=== PATIENT | female | born 1990 | race Caucasian/White ===

== ENCOUNTER → 2017-04-22 | Outpatient (CLI) | payer OTHER ==
[~2017-04-22] MED LIST: FURO-85 PO; PEDICHW50 PO; PHEN10CA3 PO
--- NOTE | 2017-04-22 09:59 | DIAGNOSTIC IMAGING REPORT ---
SKULL MIN 4 VIEWS CLINICAL HISTORY: TRAUMA TO HEAD trauma COMPARISON STUDY: None FINDINGS: Normal skull. All major sinuses are clear. Cortical margins are intact IMPRESSION: Negative study The above report was generated using voice recognition software. It may contain grammatical, syntax or spelling errors. Electronically signed by: Taco Norman M.D. 04/22/2017 9:58 AM Dictated Date/Time: 04/22/2017 9:57 AM
== END | disposition home or self-care (01) ==
LOC: C.RAD1850 09:42
PROVIDERS: ATTEND Nurse Practitioner Family
DX: S09.90XA Unspecified injury of head, initial encounter (principal); X58.XXXA Exposure to other specified factors, initial encounter

== ENCOUNTER → 2017-05-24 | Day surgery (SDC) | payer OTHER ==
[2017-05-23 08:00] VITALS: Ht 158.8 cm; Wt 61.8 kg
[~2017-05-24] VITALS: Ht 158.8 cm; Wt 61.8 kg
[~2017-05-24] MED LIST changes: +LIDOCAINE HCL 2% 2 ML VIAL (20MG/ML) ONE; -PEDICHW50 PO; +PROPOFOL IV EMULSION 10 MG/ML 20 ML VIAL IV ONE; +SODIUM CHLORIDE 0.9% 500ML 500 ML IV ONE
--- NOTE | 2017-05-24 09:16 | Endo History and Physical ---
History & Physical Date of Service: May 24, 2017. Chief Complaint: Screening, Family hx colon CA Referring Physician: Rodger Brown History of Present Illness 26 yo CF who presents for colonoscopy secondary to family history of colon cancer. Past Surgical History Hx Cardiac Surgery: No Hx Internal Defibrillator: No Hx Pacemaker: No Hx Abdominal Surgery: No Hx of Implantable Prosthesis: No Hx Post-Op Nausea and Vomiting: No Hx Cancer Surgery: No Hx Thoracic Surgery: No Hx Orthopedic: No Hx Urinary Tract Surgery: No Family History Polyp Social History Smoking Status: Current Every Day Smoker Hx Substance Use: No Hx Alcohol Use: No Allergies Coded Allergies: Azithromycin (Verified Allergy, Intermediate, Hives, 05/23/17) Penicillins (Verified Allergy, Intermediate, ITCHING, 05/23/17) Sulfamethoxazole w/Trimethoprim (Verified Allergy, Intermediate, ITCHING, 05/23/17) Nickel (Verified Allergy, Unknown, SKIN IRRITATION WITH EARRINGS, 05/23/17) Tetracycline (Verified Allergy, Unknown, ITCHING, 05/23/17) Current Medications Reported Home Medications Medications Dose Route/Sig Max Daily Dose Days Date Category Adipex P (Phentermine Hcl) 37.5 Mg Cap 37.5 Mg PO QAM 05/23/17 Reported Lasix (Furosemide) 20 Mg Tab 20 Mg PO QAM 05/23/17 Reported Vital Signs Weight (Kilograms): 61.82 Height (Feet): 5 Height (Inches): 2.5 Date Time Temp Pulse Resp B/P (MAP) Pulse Ox O2 Delivery O2 Flow Rate FiO2 05/24/17 08:54 36.6 72 16 113/66 (82) 100 Room Air Physical Exam General Appearance: WD/WN, no apparent distress Respiratory/Chest: Auscultation: breath sounds normal Cardiovascular: Heart Auscultation: RRR Abdomen: Bowel Sounds: normal Inspection & Palpation: soft, non-distended, no tenderness, guarding & rebound Assessment and Plan Assessment: 26 yo CF who presents for colonoscopy secondary to family history of colon cancer. Plan: Proceed with colonoscopy.
--- NOTE | 2017-05-24 10:14 | Anesthesiology Progress Note ---
Anesthesia Post Op Note Date & Time May 24, 2017 at 10:14 Vital Signs Pain Intensity: 0 Vital Signs Past 12 Hours Date Time Temp Pulse Resp B/P (MAP) Pulse Ox O2 Delivery O2 Flow Rate FiO2 05/24/17 09:56 63 18 116/73 (87) 99 Room Air 05/24/17 09:50 109/68 (82) 05/24/17 09:45 62 16 86/42 (57) 99 Room Air 05/24/17 08:54 36.6 72 16 113/66 (82) 100 Room Air Notes Mental Status: alert / awake / arousable, participated in evaluation Pt Amnestic to Procedure: Yes Nausea / Vomiting: adequately controlled Pain: adequately controlled Airway Patency, RR, SpO2: stable & adequate BP & HR: stable & adequate Hydration State: stable & adequate Anesthetic Complications: no major complications apparent
[2017-05-24 10:15] VITALS: BP 115/73; PULSE 65; O2SAT 99
--- NOTE | 2017-05-24 10:21 | Discharge Instructions ---
Endoscopy Patient Instructions Date / Procedure(s) Performed May 24, 2017. Colonoscopy Allergy Information Coded Allergies: Azithromycin (Verified Allergy, Intermediate, Hives, 05/23/17) Penicillins (Verified Allergy, Intermediate, ITCHING, 05/23/17) Sulfamethoxazole w/Trimethoprim (Verified Allergy, Intermediate, ITCHING, 05/23/17) Nickel (Verified Allergy, Unknown, SKIN IRRITATION WITH EARRINGS, 05/23/17) Tetracycline (Verified Allergy, Unknown, ITCHING, 05/23/17) Discharge Date / Findings May 24, 2017. Rectal polyp Medication Instructions OK to resume all medications today as prescribed Reported Home Medications Medications Dose Route/Sig Max Daily Dose Days Date Category Adipex P (Phentermine Hcl) 37.5 Mg Cap 37.5 Mg PO QAM 05/23/17 Reported Lasix (Furosemide) 20 Mg Tab 20 Mg PO QAM 05/23/17 Reported Provider Instructions Activity Restrictions - No exercising or heavy lifting for 24 hours. - Do not drink alcohol the day of the procedure. - Do not drive a car or operate machinery until the day after the procedure. - Do not make any important decisions or sign important papers in 24 hours after the procedure. Following Day: - Return to full activity which may include returning to work/school. Diet Start your diet with liquids and light foods (jello, soup, juice, toast). Then eat your usual diet if not nauseated. Treatment For Common After Affects For mild abdominal pain, bloating, or excessive gas: - Rest - Eat lightly - Lie on right side Follow-Up Information Follow-up with Rodger Brown as scheduled Anesthesia Information What You Should Know You have had a procedure that required some medicine to reduce anxiety and discomfort. This treatment is called moderate sedation. After receiving the treatment, you may be sleepy, but you will be able to breathe on your own. The effects of the treatment may last for several hours. Follow these instructions along with Activity/Diet recommendations noted above: * Do NOT do anything where dizziness or clumsiness would be dangerous. * Rest quietly at home today, then you can be up and about tomorrow. * Have a responsible person stay with you the rest of today. * You may have had an I.V. today. If so, you may take the dressing off later today. Recommendations Call your doctor if: * Trouble breathing * Continuous vomiting for more than 24 hours * Temperature above 101 degrees * Severe abdominal pain or bloating * Pain not relieved by pain medicine ordered * There is increased drainage or redness from any incision * A large amount of rectal bleeding greater than 2-3 tablespoons. (If you had a polyp/s removed or have hemorrhoids, a small amount of blood - from the rectum is to be expected.) * You have any unanswered questions or concerns. IN THE EVENT OF A SERIOUS EMERGENCY, GO TO THE NEAREST EMERGENCY ROOM Your discharge instructions were prepared by provider Fredy Prasad. Patient Instructions Signature Page Eliza De Guzman Patient (or Guardian) Signature/Date: I have read and understand the instructions given to me by my caregivers. Caregiver/RN/Doctor Signature/Date: The above-named patient and/or guardian has received patient instructions on this date. + Original Patient Signature Page (only) stays with chart. Please make copy for patient.
--- NOTE | 2017-05-25 00:14 | GI REPORT ---
Procedure Date: 05/24/2017 9:23 AM Procedure: Colonoscopy Indications: Family history of colon cancer in a first-degree relative Medicines: Monitored Anesthesia Care Complications: No immediate complications. Estimated Blood Loss: Estimated blood loss: none. Procedure: Pre-Anesthesia Assessment: - Prior to the procedure, a History and Physical was performed, and patient medications and allergies were reviewed. The patient's tolerance of previous anesthesia was also reviewed. The risks and benefits of the procedure and the sedation options and risks were discussed with the patient. All questions were answered, and informed consent was obtained. Prior Anticoagulants: The patient has taken no previous anticoagulant or antiplatelet agents. ASA Grade Assessment: II - A patient with mild systemic disease. After reviewing the risks and benefits, the patient was deemed in satisfactory condition to undergo the procedure. After I obtained informed consent, the scope was passed under direct vision. Throughout the procedure, the patient's blood pressure, pulse, and oxygen saturations were monitored continuously. The scope was introduced through the anus and advanced to the terminal ileum. The colonoscopy was performed without difficulty. The patient tolerated the procedure well. The quality of the bowel preparation was good. The terminal ileum, ileocecal valve, appendiceal orifice, and rectum were photographed. Findings: A 7 mm polyp was found in the rectum. The polyp was sessile. The polyp was removed with a hot snare. Resection and retrieval were complete. Impression: - One 7 mm polyp in the rectum, removed with a hot snare. Resected and retrieved. Recommendation: - Resume previous diet. - Continue present medications. - Repeat colonoscopy for surveillance based on pathology results. - Return to primary care physician as previously scheduled. Fredy Prasad, DO 05/24/2017 9:59:23 AM This report has been signed electronically. Note Initiated On: 05/24/2017 9:23 AM I attest to the content of the Intraoperative Record and orders documented therein, exceptions below
== END | disposition home or self-care (01) ==
LOC: C.GI 08:31
PROVIDERS: ATTEND Internal Medicine
DX: Z12.11 Encounter for screening for malignant neoplasm of colon (principal); K62.1 Rectal polyp; Z80.0 Family history of malignant neoplasm of digestive organs; F17.200 Nicotine dependence, unspecified, uncomplicated

== ENCOUNTER 2017-07-23 11:58 | Emergency (ER) | payer SELFPAY ==
[~2017-07-23] VITALS: Ht 157.5 cm; Wt 61.0 kg
[~2017-07-23 11:58] MED LIST changes: -LIDOCAINE HCL 2% 2 ML VIAL (20MG/ML) ONE; -PROPOFOL IV EMULSION 10 MG/ML 20 ML VIAL IV ONE; -SODIUM CHLORIDE 0.9% 500ML 500 ML IV ONE
[2017-07-23 12:06] VITALS: TEMP 37; Ht 157.5 cm; Wt 61.0 kg
[2017-07-23] MEDS ORDERED: PROPARACAINE HCL 0.5% OP SOLN 15 ML BTL OP STA (12:23)
[2017-07-23] MEDS ORDERED: POTA10CA28 PO (12:51)
--- NOTE | 2017-07-23 13:35 | DIAGNOSTIC IMAGING REPORT ---
CT SCAN OF THE PARANASAL SINUSES CLINICAL HISTORY: Left eye swelling. COMPARISON STUDY: MRI of the brain dated 12/15/2015. TECHNIQUE: High-resolution CT scan of the paranasal sinuses is performed. Images are reviewed in the axial, sagittal, and coronal planes. IV contrast was not administered for this examination. A dose lowering technique was utilized adhering to the principles of ALARA. CT DOSE: 535.70 mGy.cm FINDINGS: Maxillary antra: Clear bilaterally. Anterior ethmoid sinuses: Clear. Posterior ethmoid sinuses: Clear. Sphenoid sinuses: Clear. Frontal sinuses: Clear. Ostiomeatal complexes: Patent bilaterally. Frontoethmoidal and sphenoethmoidal recesses: Patent bilaterally. Carotid arteries: The carotid arteries are covered noting a septal attachment on the left. Ethmoid roofs: The ethmoid roofs are symmetric. Nasal turbinates: Normal in appearance. Nasal septum: There is mild rightward deviation of the bony nasal septum. Optic nerves: Covered. Orbits: The bony orbits are intact. Orbital contents are normal in appearance. There is left periorbital soft tissue edema. There is no evidence of fluid collection on this unenhanced examination. Calvarium: The imaged calvarium is normal in appearance Mastoid air cells: Well pneumatized. Brain parenchyma: Partially visualized brain parenchyma is within normal limits. IMPRESSION: 1. There is no paranasal sinus disease identified. 2. There is left periorbital soft tissue edema. Correlate clinically for evidence of periorbital cellulitis. 3. The orbital contents are normal in appearance. No organized fluid collection is seen. Electronically signed by: Kingsley Cummings M.D. 07/23/2017 1:34 PM Dictated Date/Time: 07/23/2017 1:31 PM
[2017-07-23] MEDS ORDERED: PRED20TA2 PO (13:51)
[2017-07-23 13:55] VITALS: BP 117/65; PULSE 78; O2SAT 100
--- NOTE | 2017-07-24 10:37 | EMERGENCY ROOM VISIT NOTE ---
ED Visit Note First contact with patient: 12:10 Chief Complaint: My left eye is swollen. History of Present Illness: Ms. Diana is a 27-year-old white female who ambulates into the ED accompanied by male friend complaining of left orbital swelling and pain. Patient reports this is the fourth time in about 5-6 months that she has awoken from sleep with facial swelling. She was seen by her PCP and placed on antibiotics and Benadryl and has had relief of her symptoms in the past. Patient reports she went to bed last night feeling normal and not having any facial swelling or pain and when she will from sleep approximately 5 hours ago she noted swelling around her left orbit and was experiencing pain around the left orbit and the maxillary sinus areas. She describes this discomfort as a pressure sensation. She rates her discomfort 7/10. Her pain is nonradiating. Her pain worsens with palpation. She has not identified any alleviating factors related to her discomfort. She has not taken medications for her discomfort prior to arrival at the hospital. Associated with her discomfort she reports she has a mild numbness and itchy sensation sensation over the left side of the face in the area of the maxillary branch of the facial nerve. Patient denies recent trauma, headache, dizziness, lightheadedness, visual changes, light sensitivity, tearing, skin eruptions, skin color changes, fevers , chills, sweats, nasal drainage, ear pain, flashing lights, floaters, cough, wheezing, shortness of breath, decreased appetite, nausea/vomiting. Review of Systems: As noted above in history of present illness. 8 body systems were reviewed and found to be negative as noted above. Past Medical History: Bronchitis, kidney stones. Current Medications: Lasix, potassium. Allergies to Medications: Zithromax, Bactrim, penicillin, tetracycline. Social History: Patient is currently employed; she feels safe in her home environment; she admits to tobacco and alcohol use. Physical Examination: Vital Signs: Date Time Temp Pulse Resp B/P (MAP) Pulse Ox O2 Delivery O2 Flow Rate FiO2 07/23/17 13:55 78 16 117/65 100 07/23/17 12:06 37.0 84 18 118/79 100 Room Air GENERAL: 27-year-old female in mild distress due to symptoms, nontoxic-appearing , afebrile and hemodynamically stable. NEUROLOGICAL: Awake, alert and oriented to person, place and time. Answering questions appropriately and following commands. Normal gait. Good hand eye coordination. Cranial nerves II through XII grossly intact. Face: Patient able to distinguish light sensations through all dermatomes. SKIN: Warm, dry and pink. No soft tissue eruptions or trauma noted. HEENT: Atraumatic and normocephalic. Face: No bony deformity or ecchymosis. Moderate tenderness over the upper eyelid but no tenderness over the supraorbital ridge. There is also mild tenderness over the zygomatic arch area. He threw these areas have bony crepitus or ecchymosis. External ears are nontender. Auditory canals are pink and patent. Tympanic membranes are pearly christianson with normal light reflex. PERRLA. EOMI without nystagmus. No foreign bodies noted under the eyelids are embedded in the cornea. Anterior chamber is clear. On slit lamp examination with staining there was no corneal defects. Visual acuity: 20/25 laterally with contacts area. Sclera white and conjunctiva pink without drainage. No drainage from naris without audible congestion. Oral cavity moist and pink. Airway patent. Pharynx is nonerythematous or edematous. Speech normal. No preauricular or postauricular lymphadenopathy. Trachea midline. No jugular venous distention. BACK: No tenderness over the bony spine. THORAX: Lungs sounds are clear to auscultation and equal bilaterally with symmetrical chest wall. ED Course: Patient is assessed as noted above. Patient's medication list was reviewed. Patient was offered pain medications and refused. Alcaine was used to anesthetize the eye for examination. Urine : Negative. Noncontrast Sinus CT: Was reviewed by myself and read by the radiologist showing no paranasal sinus disease, left periorbital soft tissue swelling, orbit contents are normal and appearing with no denies fluid collection seen. Patient's case was reviewed with ; we agreed on diagnostic approach , treatment, disposition and plan. Patient was educated about today's findings and instructed on her treatment plan ; she verbalized understanding and agreement with this plan. Clinical Impression: Left-sided orbit swelling. Decision-Making: Initially in my my differential diagnosis I considered conjunctivitis, corneal foreign body, sinusitis, tear duct dysfunction, orbital cellulitis and other causes. Disposition: Patient discharged home in stable condition accompanied by male friend; prior to departure she was reassessed and subjectively reported she was feeling better and rated her discomfort 10/12. Plan: Patient was encouraged use 25-50 mg of Benadryl every 6 hours as needed for itching and facial swelling. Patient was prescribed prednisone 60 mg once a day for 5 days. Patient was encouraged use ice on areas of pain and swelling 5-6 times a day for 20-30 minutes. 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 Patient was encouraged return ED for fevers, chills, facial redness, worsening swelling, visual changes, facial rashes, vomiting or any new/concerning symptoms.
== END 2017-07-23 13:57 | disposition home or self-care (01) ==
LOC: C.EDB 11:59 → C.EDD 13:57
DX: H05.222 Edema of left orbit (principal); Z79.899 Other long term (current) drug therapy; Z87.09 Personal history of other diseases of the respiratory system; Z87.442 Personal history of urinary calculi; F17.200 Nicotine dependence, unspecified, uncomplicated

== ENCOUNTER → 2017-09-28 | Outpatient (CLI) | payer OTHER ==
[~2017-09-28] MED LIST changes: -PHEN10CA3 PO; +POTA10CA28 PO
== END | disposition home or self-care (01) ==
LOC: C.LABSPEC 15:57
PROVIDERS: ATTEND Obstetrics & Gynecology
DX: Z34.81 Encounter for supervision of other normal pregnancy, first trimester (principal)

== ENCOUNTER → 2017-10-05 | Outpatient (CLI) | payer OTHER | END | disposition home or self-care (01) | LOC: C.LABSPEC 17:48 | PROVIDERS: ATTEND Obstetrics & Gynecology | DX: Z34.81 Encounter for supervision of other normal pregnancy, first trimester (principal) ==

== ENCOUNTER → 2017-10-07 | Outpatient (CLI) | payer OTHER ==
[2017-10-07 16:37] LABS: BASO % 0.2 %; BASO ABS # 0.02 K/uL (0-0.2); EOS % 1.6 %; EOS ABS # 0.14 K/uL (0-0.5); HEMATOCRIT 37.2 % (37-47); HEMOGLOBIN 12.9 g/dL (12.0-16.0); IG# 0.03 K/uL (0.00-0.02); LYMPH % 28.2 %; MEAN CELL VOLUME 86.9 fL (80-100); MEAN CORPUSCULAR HEMOGLOBIN 30.1 pg (25-34); MEAN CORPUSCULAR HGB CONC 34.7 g/dl (32-36); MEAN PLATELET VOLUME 9.1 fL (7.4-10.4); MONO % 9.7 %; MONO ABS # 0.86 K/uL (0.11-0.59); NEUT ABS # 5.33 K/uL (1.4-6.5); PLATELET COUNT 249 K/uL (130-400); RED CELL DISTRIBUTION WIDTH CV 13.1 % (11.5-14.5); RED CELL DISTRIBUTION WIDTH SD 41.6 fL (36.4-46.3); WHITE BLOOD COUNT 8.88 K/uL (4.8-10.8)
== END | disposition home or self-care (01) ==
LOC: C.LAB1850 15:54
PROVIDERS: ATTEND Obstetrics & Gynecology
DX: Z34.81 Encounter for supervision of other normal pregnancy, first trimester (principal)

== ENCOUNTER → 2017-11-30 | Outpatient (CLI) | payer OTHER | END | disposition home or self-care (01) | LOC: C.LAB1850 15:45 | PROVIDERS: ATTEND Obstetrics & Gynecology | DX: Z34.82 Encounter for supervision of other normal pregnancy, second trimester (principal) ==

== ENCOUNTER → 2018-02-22 | Outpatient (CLI) | payer OTHER ==
[2018-02-22 17:44] LABS: HEMOGLOBIN 11.8 g/dL (12.0-16.0)
== END | disposition home or self-care (01) ==
LOC: C.LAB1850 16:17
PROVIDERS: ATTEND Obstetrics & Gynecology
DX: Z34.83 Encounter for supervision of other normal pregnancy, third trimester (principal)

== ENCOUNTER → 2018-04-21 | Outpatient (CLI) | payer OTHER | END | disposition home or self-care (01) | LOC: C.LABSPEC 17:37 | PROVIDERS: ATTEND Obstetrics & Gynecology | DX: Z34.83 Encounter for supervision of other normal pregnancy, third trimester (principal) ==

== ENCOUNTER 2018-05-13 13:50 | Inpatient (IN) | payer OTHER ==
[~2018-05-13] VITALS: Ht 160 cm; Wt 86.4 kg
[2018-05-13] MEDS ORDERED: LACTATED RINGER'S 1000ML 1,000 ML IV PRN (14:39)
[2018-05-13] MEDS ORDERED: LACTATED RINGER'S 1000ML 1,000 ML IV SCH (14:39)
[2018-05-13] MEDS ORDERED: CEFAZOLIN IV 1,000 MG in DEXTROSE 5% 50ML 50 ML IV PRN (14:45)
[2018-05-13] MEDS ORDERED: CEFAZOLIN IV 2,000 MG in DEXTROSE 5% 50ML 50 ML IV ONE (14:45)
[2018-05-13 14:59] VITALS: BMI 33.7
[2018-05-13] MEDS ORDERED: CEFAZOLIN IV 1,000 MG in SYRINGE 0 ML IV PRN (15:00)
[2018-05-13] MEDS ORDERED: CEFAZOLIN IV 2,000 MG in SYRINGE 0 ML IV ONE (15:00)
[2018-05-13] MEDS ORDERED: BUPIVACAINE 0.25% 30 ML VIAL ONE (15:05)
[2018-05-13] MEDS ORDERED: FENTANYL CITRATE INJ 50 MCG/1 ML 2 ML VIAL ONE (15:05)
[2018-05-13] MEDS ORDERED: EpHEDrine SULFATE INJ 50 MG/ML AMP ONE (15:05)
[2018-05-13] MEDS ORDERED: FENTANYL 2MCG/ML ROPIV 1.25MG/ML 100ML BAG ONE (15:06)
[2018-05-13 15:07] LABS: HEMOGLOBIN 12.4 g/dL (12.0-16.0); MEAN CELL VOLUME 88.2 fL (80-100); MEAN CORPUSCULAR HEMOGLOBIN 30.4 pg (25-34); MEAN CORPUSCULAR HGB CONC 34.4 g/dl (32-36); MEAN PLATELET VOLUME 9.5 fL (7.4-10.4); PLATELET COUNT 265 K/uL (130-400); RED CELL DISTRIBUTION WIDTH CV 14.1 % (11.5-14.5); RED CELL DISTRIBUTION WIDTH SD 45.5 fL (36.4-46.3); WHITE BLOOD COUNT 17.57 K/uL (4.8-10.8)
[2018-05-13 15:46] VITALS: Ht 160 cm; Wt 86.4 kg
[2018-05-13] MEDS ORDERED: PRENTAB26 PO (15:51)
[2018-05-13] MEDS ORDERED: LACTATED RINGER'S 1000ML 500 ML IV PRN (16:12)
[2018-05-13] MEDS ORDERED: NALOXONE HCL INJ 1 MG in SODIUM CHLORIDE 0.9% 1000ML 1,000 ML IV PRN (16:12)
[2018-05-13] MEDS ORDERED: FENTANYL 2MCG/ML ROPIV 1.25MG/ML 100ML BAG EPI PRN (16:15)
[2018-05-13] MEDS ORDERED: NALBUPHINE HCL INJ 10 MG/ML 1ML AMP IV PRN (16:15)
[2018-05-13] MEDS ORDERED: EpHEDrine SULFATE INJ 50 MG/ML AMP IV PRN (16:15)
[2018-05-13] MEDS ORDERED: NALOXONE HCL INJ 0.4 MG/1 ML VIAL/CARP IV PRN (16:15)
[2018-05-13] MEDS ORDERED: DiphenhydrAMINE HCL 50 MG/ML VIAL IV PRN (16:15)
[2018-05-13] MEDS ORDERED: ONDANSETRON INJ 2 MG/ML 2 ML VIAL IV PRN (16:15)
[2018-05-13] MEDS ORDERED: CALCIUM CARBONATE 500 MG CHEWABLE PO PRN (18:15)
[2018-05-13] MEDS ORDERED: OXYTOCIN 30 UNITS/500ML NSS IV ONE (18:44)
[2018-05-13] MEDS ORDERED: SUPERCREAM 0.870 % 15GM JAR EXT PRN (19:30)
[2018-05-13] MEDS ORDERED: OXYTOCIN 30 UNITS/500ML NSS IV PRN (19:30)
[2018-05-13] MEDS ORDERED: DIPHTHERIA/TETANUS/PERTUSSIS 0.5 ML SYR/VIAL IM. ONE (19:30)
[2018-05-13] MEDS ORDERED: HYDROCORTISONE ACETATE 25 MG SUPP PR PRN (19:30)
[2018-05-13] MEDS ORDERED: LANOLIN OINT EXT PRN (19:30)
[2018-05-13] MEDS ORDERED: OXYCODONE/ACETAMINOPHEN 5-325 TAB PO PRN (19:30)
[2018-05-13] MEDS ORDERED: ACETAMINOPHEN 325 MG TAB PO PRN (19:30)
[2018-05-13] MEDS ORDERED: BENZOCAINE 20% AER SPR 82.5 GM CAN EXT PRN (19:30)
[2018-05-13] MEDS: DOCUSATE SODIUM 100 MG CAP PO SCH (20:15)
[2018-05-13] MEDS: IBUPROFEN 600 MG TAB PO PRN (22:02)
[2018-05-13 22:05] VITALS: BP 127/71; PULSE 85; TEMP 36.7
[2018-05-13 23:20] VITALS: BP 127/70; PULSE 82; TEMP 36.9
[2018-05-14 03:20] VITALS: BP 119/73; PULSE 79; TEMP 36.9
[2018-05-14] MEDS: IBUPROFEN 600 MG TAB PO PRN ×5 (03:31→20:57)
[2018-05-14 07:01] LABS: HEMATOCRIT 31.2 % (37-47); HEMOGLOBIN 10.5 g/dL (12.0-16.0)
[2018-05-14] MEDS: DOCUSATE SODIUM 100 MG CAP PO SCH ×2 (07:33→19:13)
[2018-05-14] MEDS: PRENATAL VITAMIN TAB PO SCH (07:33)
[2018-05-14 07:35] VITALS: BP 122/77; PULSE 81; TEMP 36.6
--- NOTE | 2018-05-14 08:37 | Anesthesia Procedure Note ---
Anesthesia Epidural Removal Nt Date & Time May 14, 2018 at 08:37 Vital Signs Pain Intensity: 2 Vital Signs Past 12 Hours Date Time Temp Pulse Resp B/P (MAP) Pulse Ox O2 Delivery O2 Flow Rate FiO2 05/14/18 03:20 36.9 79 18 119/73 (88) Room Air 05/13/18 23:20 36.9 82 18 127/70 (89) Room Air 05/13/18 22:05 Room Air 05/13/18 22:05 36.7 85 18 127/71 (89) Room Air Notes Mental Status: alert / awake / arousable, participated in evaluation Nausea / Vomiting: adequately controlled Pain: adequately controlled Airway Patency, RR, SpO2: stable & adequate BP & HR: stable & adequate Hydration State: stable & adequate Neuraxial Anesthesia: was administered Anesthetic Complications: no major complications apparent, pt satisfied with anesthetic care Epidural: removed without complications, with tip intact
--- NOTE | 2018-05-14 09:04 | Progress Note ---
Subjective May 14, 2018. Subjective conversation w/ patient, physical exam, lab review Ambulation: ambulating normally Voiding: no voiding problems Passing Gas: Yes Diet Tolerance: Regular Diet Lochia: Small Feeding Type: Breast Feeding Pain: controlled Objective Vital Signs Date Time Temp Pulse Resp B/P (MAP) Pulse Ox O2 Delivery O2 Flow Rate FiO2 05/14/18 03:20 36.9 79 18 119/73 (88) Room Air 05/13/18 23:20 36.9 82 18 127/70 (89) Room Air 05/13/18 22:05 Room Air 05/13/18 22:05 36.7 85 18 127/71 (89) Room Air Physical Exam General Appearance: WELL-APPEARING, WD/WN, NO APPARENT DISTRESS Abdomen: non tender, soft Fundus: Firm, Non-Tender, Relation to Umbilicus (at u) Extremities: non-tender, normal inspection, no pedal edema Laboratory Results Last 24 Hours Test 05/13/18 14:55 05/14/18 06:42 White Blood Count 17.57 K/uL Red Blood Count 4.08 M/uL Hemoglobin 12.4 g/dL 10.5 g/dL Hematocrit 36.0 % 31.2 % Mean Corpuscular Volume 88.2 fL Mean Corpuscular Hemoglobin 30.4 pg Mean Corpuscular Hemoglobin Concent 34.4 g/dl RDW Standard Deviation 45.5 fL RDW Coefficient of Variation 14.1 % Platelet Count 265 K/uL Mean Platelet Volume 9.5 fL Assessment and Plan Problem List Medical Problems: (1) Left facial swelling Status: Acute Post- Day#: 1 Continue Routine Care: Doing well. Routine care.
[2018-05-14 12:10] VITALS: BP 120/72; PULSE 101; TEMP 36.8
[2018-05-14 16:30] VITALS: BP 121/67; PULSE 87; TEMP 36.7
[2018-05-14 20:05] VITALS: BP 124/77; PULSE 81; TEMP 36.7
[2018-05-14 23:20] VITALS: BP 123/74; PULSE 73; TEMP 36.8
[2018-05-15] MEDS: IBUPROFEN 600 MG TAB PO PRN ×3 (00:36→08:48)
--- NOTE | 2018-05-15 02:09 | DELIVERY SUMMARY ---
DATE OF OPERATION: 05/13/2018 PREOPERATIVE DIAGNOSES: 1. Intrauterine at 39 and 2/7 weeks. 2. Active labor. 3. GBS positive. POSTOPERATIVE DIAGNOSES: 1. Intrauterine at 39 and 2/7 weeks. 2. Active labor. 3. GBS positive. PROCEDURES: 1. Ancef treatment for GBS positive status. 2. amniotomy. 3. Epidural. 4. Normal spontaneous vaginal delivery. PROCEDURE IN DETAIL: The patient presented to labor and delivery at 39 and 2/7 weeks, in active labor, 4, 80, and -2. She was admitted. Got [facility] for GBS prophylaxis. Underwent an epidural anesthetic and then amniotomy for clear fluids. She progressed to complete-complete and +2 station and pushed for approximately 30 minutes to deliver a viable male infant in S[place]. Nose and mouth bulb suctioned. There was no nuchal cord. The resting infant was then delivered without difficulty. The infant was vigorous and the nose and mouth were again bulb suctioned and the infant was placed on maternal abdomen for drying and attention. Cord was clamped and cut at 1 minute of life and cord blood and segment were obtained. Placenta was delivered spontaneously intact with 3-vessel cord. Cervix, sulci, and rectum and perineum were intact. Small vaginal skid michele was reapproximated with 3-0 Vicryl and [id number] suture. Estimated blood loss 400 mL. Hemostasis with dilute Pitocin and fundal massage. Apgars were 8 and 9. Mother and baby doing well at the end of the delivery. I attest to the content of the Intraoperative Record and any orders documented therein. Any exceptions are noted below. MTDD
--- NOTE | 2018-05-15 06:51 | Progress Note ---
Subjective May 15, 2018. Subjective conversation w/ patient, physical exam, lab review Ambulation: ambulating normally Voiding: no voiding problems Passing Gas: Yes Diet Tolerance: Regular Diet Lochia: Small Feeding Type: Breast Feeding Pain: controlled Objective Vital Signs Date Time Temp Pulse Resp B/P (MAP) Pulse Ox O2 Delivery O2 Flow Rate FiO2 05/14/18 23:20 36.8 73 18 123/74 (90) Room Air 05/14/18 20:05 36.7 81 18 124/77 (93) Room Air 05/14/18 16:30 Room Air 05/14/18 16:30 36.7 87 18 121/67 (85) Room Air 05/14/18 12:10 36.8 101 20 120/72 (88) Room Air 05/14/18 07:35 36.6 81 20 122/77 (92) Room Air 05/14/18 07:35 Room Air Physical Exam General Appearance: WELL-APPEARING, WD/WN, NO APPARENT DISTRESS Abdomen: non tender, soft Fundus: Firm, Non-Tender, Relation to Umbilicus (1 below) Extremities: non-tender, normal inspection, no pedal edema Assessment and Plan Problem List Medical Problems: (1) Left facial swelling Status: Acute Post- Day#: 2 Continue Routine Care: Doing well. Plan d/c. Instructions given.
[2018-05-15 08:35] VITALS: BP 130/66; PULSE 91; TEMP 36.6; O2SAT 98
[2018-05-15] MEDS: DOCUSATE SODIUM 100 MG CAP PO SCH (08:47)
[2018-05-15] MEDS: PRENATAL VITAMIN TAB PO SCH (08:47)
--- NOTE | 2018-05-15 10:39 | Discharge Instructions ---
Discharge Instructions Date of Service May 15, 2018. Admission Reason for Admission: Check Labor Discharge Discharge Diagnosis / Problem: same Discharge Goals Goal(s): Routine recovery after delivery Medications Continue Dispensed Medications: supercream, dermaplast, tucks Activity Recommendations Activity Limitations: as noted below . Instructions / Follow-Up Instructions / Follow-Up ACTIVITY RECOMMENDATIONS: * Gradual return to full activity over the next 2-3 weeks. * No lifting - nothing heavier than baby over the next 2-3 weeks. * Do not engage in vigorous exercise, sexual activity or sports until cleared by your physician. * Do not drive or operate any motorized equipment until cleared by your physician. * You may shower/bathe daily. MEDICATIONS: For discomfort or pain, you may use Acetaminophen (Tylenol), Ibuprofen (Advil), or Naproxen (Aleve) following the package directions. For constipation you may use Colace following the package directions. BREAST CARE: If you are not breast feeding: * Wear a supportive bra 24 hours a day for one to two weeks. * Avoid stimulating your breasts and nipples as much as possible during the first few weeks after delivery. * When taking a shower, have the warm water hit your back, not breasts. * When your breasts feel full, apply ice packs. Usually three to four times a day helps ease the discomfort. * Take a mild pain medication (Tylenol / Motrin) when you are uncomfortable. If breast feeding: * Use breast milk to lubricate nipples. Lansinoh cream may be used for sore nipples. You do not need to remove cream prior to breast feeding. If using a different brand of cream, check the label for directions regarding removal of cream prior to nursing. * Wear a supportive bra. * If having problems with breasts or breast feeding, call a eyewear consultant or your health care provider. EPISIOTOMY CARE: After delivery, if you have an episiotomy (stitches), the following steps will ease discomfort and aid healing. * For the first 24 hours after delivery, place ice packs next to your episiotomy to help reduce swelling. * After the first 24 hour-period, sitz baths, either portable or in the tub, are suggested. A shower with a shower arm sprayed over the episiotomy may be comforting. * Mami care should be done after each voiding and bowel movement. Squirt warm water from a plastic bottle over the perineum (region of the body between the anus and urinary opening) and pat dry. * Use Dermoplast to ease discomfort. Shake container. [place] directly over the episiotomy. Place a Tucks on a clean sanitary pad next to your episiotomy. SPECIAL CARE INSTRUCTIONS: When you are discharged from the hospital, it is important for you to follow the instructions listed below: * During the first week at home, you should be able to care for yourself and your baby. In addition, the usual light household activities are encouraged. * Limit your activities to the way you feel. Do not try to clean the house or move furniture. Be sensible. * If you actively engage in sports and have done so up until the time of your delivery, you may resume these activities as soon as you feel able. This may take up to one month or even longer. Use good judgment. * Continue to take your vitamins for at least six weeks after the of your baby. * Your diet need not be limited unless you were on a special diet before your delivery. Breast-feeding mothers need around 2500 calories per day and at least 64-80 ounces of fluid per day (8 to 10 glasses). * You should eat foods from the four major food groups. Crash diets or fad diets are to be avoided. Eating lean meats, fresh fruits and vegetables, low-fat dairy products, high fiber foods and a regular exercise program, will help you get back to your pre- weight without putting your health at risk. * Constipation is sometimes a problem after delivery. Take a mild laxative as needed. If breast feeding, Milk of Magnesia is acceptable to use. You may use a suppository or Fleets enema if no episiotomy. * A daily shower or tub bath is suggested. Be sure to thoroughly and gently dry the perineum. * A bloody vaginal discharge will usually continue until around four weeks post . A small amount of bleeding may continue for as long as six weeks. Vaginal discharge changes from the bright red bleeding after delivery to pink then brownish and finally yellowish-pink before becoming white and disappearing. * Bleeding may increase with activity. Your first period may come in 4-8 weeks. If you are breast feeding, your period may be delayed even longer. * [place] (sex) can begin whenever both you and your partner feel comfortable and do not have any form of genital infection. It is recommended that you wait at least six weeks for internal and external healing to occur. If you have questions, please talk to your health care practitioner. A condom should be used to prevent infection and . * Foreplay, gentle intercourse and lubrication is very important the first several times to prevent pain. A water-based lubricant such as K-Y jelly or Astroglide may be used. * If you have RH negative blood and your baby is RH positive, you will receive RHOGAM by injection prior to discharge. The nurse will give you a card to keep with you that has the date and place that you received RHOGAM after delivery. * During your care, you had a Rubella screen done to check for the presence of rubella antibodies in your blood. If your test was negative, you will receive a Rubella vaccine prior to discharge. This vaccine may cause a fever, soreness at the injection site and flu-like symptoms. If these symptoms persist, notify your health care practitioner. is not advised for one month after a Rubella vaccine. * Verbalizes understanding of car seat law as reviewed with patient nursing. * Car Seat hand-out given and reviewed with patient by nursing. * Shaken baby information reviewed with patient by nursing. Call you doctor if: * Heavy bleeding (saturating several pads an hour) or passing clots the size of your fist. * A fever >101 degrees F (38.3 degrees C) on two occasions four hours apart and /or chills. * Unusual pain in the pelvic or vaginal areas. * "Baby Blues" lasting longer than two weeks. If you have any questions or concerns, call your health care practitioner at . FOLLOW UP VISIT: * Please call the office at to schedule a 6 week examination. It is important you keep this appointment. It is important for you to make arrangements for either yearly or twice yearly check-ups thereafter. Current Hospital Diet Patient's current hospital diet: Regular OB Diet Discharge Diet Recommended Diet: Regular Diet Pending Studies Studies pending at discharge: no Medical Emergencies . Who to Call and When: Medical Emergencies: If at any time you feel your situation is an emergency, please call 911 immediately. . Non-Emergent Contact Non-Emergency issues call your: Ingredient Mixer Call Non-Emergent contact if: you have a fever, temperature is above 100.5 . . "Provider Documentation" section prepared by Francisco Aj. .
[2018-05-15 13:55] VITALS: BP_DIAS 66; PULSE 91; TEMP 36.6
== END 2018-05-15 13:55 | disposition home or self-care (01) | DRG 775 ==
LOC: C.LD 13:50 → C.OPB 13:50 → C.LD 14:41 → C.OPB 14:41 → C.OBG 21:27
PROVIDERS: ADMIT Obstetrics & Gynecology; ATTEND Obstetrics & Gynecology
PROC: 0HQ9XZZ Repair Perineum Skin, External Approach (ICD-10-PCS; principal; 2018-05-13)
PROC: 10E0XZZ Delivery of Products of Conception, External Approach (ICD-10-PCS; principal; 2018-05-13)
DX: O99.824 Streptococcus B carrier state complicating childbirth (principal); O70.0 First degree perineal laceration during delivery; O99.334 Smoking (tobacco) complicating childbirth; Z37.0 Single live birth; Z3A.39 39 weeks gestation of pregnancy; Z88.0 Allergy status to penicillin; Z88.1 Allergy status to other antibiotic agents; Z87.440 Personal history of urinary (tract) infections